=== PATIENT | female | born 1975 | race Two or more races ===

== ENCOUNTER → 2024-12-10 | Outpatient (CLI) | payer MEDICAID, SELFPAY ==
--- NOTE | 2024-12-10 10:00 | XR_ITS ---
Examination: Breast ultrasound complete, bilateral Date and time of exam: December 10, 2024 1017 hours INDICATIONS: Bilateral breast sonography April 03, 2023 right breast 11:00 nodule 15 mm left breast 2:00 nodule 17 mm 2:00 nodule 10 mm 7:00 nodule 10 mm Technique: Real-time grayscale ultrasonographic imaging bilateral breasts, including all 4 quadrants as well as nipple retroareolar and axillary regions. Findings: Sonographic images right breast 11:00 nodule partially lobular margins 15 x 8 x 10 mm Sonographic images left breast 2:00 nodule 17 x 12 mm lobular margins 2:00 nodule 7 x 7 mm lobular margins 7:00 nodule circumscribed 10 x 9 mm IMPRESSION: BI-RADS Category 3: Probably benign findings Continued 6 month follow-up bilateral breast sonography strongly advised to document stability of nodules described above
--- NOTE | 2024-12-10 11:00 | XR_ITS ---
Examination: Diagnostic digital mammography, bilateral Computer aided detection 3-D breast Tomosynthesis, bilateral Date and time of exam: December 10, 2024, 10:45 AM INDICATIONS: Mammogram April 03, 2023 10 mm circumscribed mass inner left breast Technique: Nonmagnified MLO, CC views of the breasts to been obtained, reconstructed from 3-D Tomosynthesis images. R2 computer aided detection program utilized for evaluation of suspicious masses and/or abnormal calcifications. 3-D Tomosynthesis images obtained. Findings: The breasts are heterogeneously dense, which may obscure small masses Right and left breast sonogram today demonstrate 11:00 nodule right breast and 2:00 nodules 17 mm and 7 mm as well as 7:00 nodule 10 mm left breast The follow-up spot compression views demonstrate stable nodule on this study CC view inner left breast 8 mm Impression: BI-RADS Category 3: Probably benign findings One additional 6 month bilateral mammography follow-up is needed.
== END | disposition home or self-care (01) ==
PROVIDERS: PCP Physician Assistant; Referring Provider Physician Assistant; Visit Provider Physician Assistant
DX: N63.0 Unspecified lump in unspecified breast (principal); N63.21 Unspecified lump in the left breast, upper outer quadrant; N63.11 Unspecified lump in the right breast, upper outer quadrant; N63.24 Unspecified lump in the left breast, lower inner quadrant; R92.333 Mammographic heterogeneous density, bilateral breasts
CPT/HCPCS: 76641; 77062; 77066; G0279